=== PATIENT | female | born 2000 | race Caucasian/White ===

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

== ENCOUNTER 2019-01-31 11:21 | Emergency (ER) | payer OTHER, SELFPAY ==
[2019-01-31] MEDS ORDERED: Ondansetron PF 4 MG/2 ML Vial ONE (11:57)
[2019-01-31] MEDS ORDERED: Metoclopramide HCl 10 MG/2 ML VIAL ONE (11:58)
[2019-01-31] MEDS ORDERED: Dexamethasone 4 mg/ml Vial ONE (11:58)
[2019-01-31 12:25] LABS: #Basophils 0.1 thou/uL (0.0-0.2); #Eosinphils 0.1 thou/uL (0.0-0.7); #Lymphocytes 1.6 thou/uL (1.20-3.40); #Monocytes 0.3 thou/uL (0.11-0.59); #Neutrophils 3.6 thou/uL (1.40-6.50); %Eosinophils 2.3 % (0.0-10.0); %Lymphocytes 27.4 % (28.0-48.0); %Monocytes 5.9 % (0.0-4.0); %Neutrophils 63.4 % (31.0-61.0); Hemoglobin 12.3 g/dL (12.0-16.0); Mean Corpuscular HGB CONC 33.6 g/dL (32.0-36.0); Mean Corpuscular Volume 89.5 fL (78.0-98.0); Mean Platelet Volume 6.8 fL (7.4-10.4); Platelet Count 294 thou/uL (130-400); White Blood Cell (WBC) Count 5.7 thou/uL (4.8-10.8)
[2019-01-31 12:33] LABS: BHCG - Serum POSITIVE (NEGATIVE); Pregs Control Background? CLEAR/WHITE (CLR/WHITE); Pregs Control Bar Appear? YES (CONTROL BAR)
[2019-01-31 12:41] LABS: ALT (SGPT) 9 U/L (8-55); AST (SGOT) 16 U/L (5-30); Albumin 4.4 g/dL (3.5-5.0); Alkaline Phosphatase 50 U/L (40-150); Anion Gap 14 mmol/L (10-20); BUN (Urea Nitrogen) 6 mg/dL (8.4-21.0); Bilirubin, Total 0.6 mg/dL (0.2-1.2); CK (CPK) 70 U/L (29-168); Calc. Creatinine Clearance 0 mL/min (70-130); Calcium 9.7 mg/dL (7.8-10.44); Carbon Dioxide 23 mmol/L (22-29); Chloride 104 mmol/L (98-107); Estimated GFR-MDRD Greater than 90; Globulin 2.9 g/dL (2.4-3.5); Glucose 81 mg/dL (70-105); Lipase 17 U/L (8-78); Potassium 3.5 mmol/L (3.5-5.1); Protein, Total 7.3 g/dL (6.0-8.3); Sodium 137 mmol/L (136-145)
--- NOTE | 2019-01-31 13:38 | ULT ---
FObstetric sonogram transabdominal imaging HISTORY: Early . Pelvic pain and nausea. FINDINGS: Multiple transabdominal sonographic views of the gravid uterus show a single intrauterine g estation in variable presentation grade 0 placenta is anterior. Amniotic fluid is within normal limit s. Early gestational age limits anatomic detail. Heart motion at 155 bpm. Measurements are as follows: Biparietal diameter 14 weeks 3 days. Head circumference 14 weeks 1 day. Abdominal circumference 14 weeks 4 days. Femur length 13 weeks 4 days. IMPRESSION: Single viable intrauterine gestation with estimated gestational age based on today's sono gram of 14 weeks 0 days. Estimated date of delivery 08/01/2017. No significant abnormalities are demonstrated.
[2019-01-31 14:19] LABS: Bilirubin Negative (Negative); Blood, Urine Negative (Negative); Clarity CLOUDY (Clear); Glucose, Urine (Dipstick) Negative (Negative); Leukocyte Small (Negative); Nitrite Positive (Negative); Pregnancy Test - Urine (BHCG) POSITIVE (Negative); Pregu Control Background? CLEAR/WHITE (CLR/WHITE); Pregu Control Bar Appear? YES (CONTROL BAR); Protein, Urine (Dipstick) Negative (Neg-Trace)
[2019-01-31 14:21] LABS: Bacteria/HPF 4+ HPF (None Seen); Hyaline Casts/LPF 4-6 HYALINE CAST LPF (0-3 Hyaline); Pathc Cast-AUWi Flag 0.68 (0-2.49); RBC/HPF 0-3 HPF (0-3)
[2019-02-03 00:56] LABS: Chlamydia by PCR Not Detected (NotDetected); GC by PCR Not Detected (NotDetected)
== END 2019-01-31 14:17 | disposition home or self-care (01) ==
LOC: ERS 11:21
DX: O99.89 Other specified diseases and conditions complicating pregnancy, childbirth and the puerperium (principal); R19.5 Other fecal abnormalities
CPT/HCPCS: 36415; 76805; 80053; 81003; 81015; 81025; 82274; 82550; 83690; 84702; 84703; 85025; 86900; 86901; 87480; 87491; 87510; 87591; 87660; 96361; 96374; J1100; J2405; J2765